=== PATIENT | male | born 1960 | race Caucasian/White ===

== ENCOUNTER 2019-12-19 14:59 | Emergency (ER) | payer MEDICARE, MEDICAID, OTHER ==
[~2019-12-19] VITALS: Ht 185.4 cm; Wt 74.8 kg
[2019-12-19 15:00] VITALS: BP 126/71
[2019-12-19] MEDS ORDERED: LORA-622 PO (15:12)
[2019-12-19] MEDS ORDERED: LEVOTHYROXINE (15:12)
[2019-12-19] MEDS ORDERED: SERT-141 PO (15:12)
[2019-12-19] MEDS ORDERED: BUSP15TA47 PO (15:12)
[2019-12-19] MEDS ORDERED: BOOSTRIX/ADACEL VACCINE (DIPHTH/PERTUSS/ACELL/TETANUS) 0.5ML SYR IM ONE (15:30)
[2019-12-19] MEDS ORDERED: CLEO150C PO (15:58)
[2019-12-19] MEDS ORDERED: RABIES VACCINE HUMAN 2.5 INTERNATIONAL UNITS/ML VIAL (90675) IM ONE (16:00)
[2019-12-19] MEDS ORDERED: RABIES IMMUNE GLOBULIN 1500 INTERNATIONAL UNIT/5ML VIAL (90375) IM ONE (16:00)
== END 2019-12-19 16:26 | disposition home or self-care (01) ==
LOC: M ED 14:59
DX: S01.85XA Open bite of other part of head, initial encounter (principal); W54.0XXA Bitten by dog, initial encounter; Z20.3 Contact with and (suspected) exposure to rabies; L03.211 Cellulitis of face; Y92.414 Local residential or business street as the place of occurrence of the external cause; Y93.9 Activity, unspecified; Y99.9 Unspecified external cause status; Z79.899 Other long term (current) drug therapy

== ENCOUNTER 2019-12-22 12:06 | Emergency (ER) | payer MEDICARE, MEDICAID, OTHER ==
[~2019-12-22] VITALS: Ht 177.8 cm; Wt 75.5 kg
[~2019-12-22 12:06] MED LIST: BUSP15TA47 PO; CLEO150C PO; LEVOTHYROXINE; LORA-622 PO; SERT-141 PO
[2019-12-22 12:07] VITALS: BP 106/59
[2019-12-22] MEDS ORDERED: RABIES VACCINE HUMAN 2.5 INTERNATIONAL UNITS/ML VIAL (90675) IM ONE (12:30)
== END 2019-12-22 12:51 | disposition home or self-care (01) ==
LOC: M ED 12:06
DX: Z23 Encounter for immunization (principal); Z20.3 Contact with and (suspected) exposure to rabies

== ENCOUNTER 2019-12-26 12:11 | Emergency (ER) | payer MEDICARE, MEDICAID, OTHER ==
[~2019-12-26] VITALS: Ht 175.3 cm; Wt 74.5 kg
[2019-12-26 12:12] VITALS: BP 111/58
[2019-12-26] MEDS ORDERED: LORA-579 PO (12:19)
[2019-12-26] MEDS ORDERED: RABIES VACCINE HUMAN 2.5 INTERNATIONAL UNITS/ML VIAL (90675) IM ONE (12:30)
== END 2019-12-26 12:45 | disposition home or self-care (01) ==
LOC: M ED 12:11
DX: Z20.3 Contact with and (suspected) exposure to rabies (principal)

== ENCOUNTER 2020-01-02 12:03 | Emergency (ER) | payer MEDICARE, MEDICAID, OTHER ==
[~2020-01-02] VITALS: Ht 182.9 cm; Wt 75.6 kg
[2020-01-02 12:03] VITALS: BP 111/64
[~2020-01-02 12:03] MED LIST changes: +LORA-579 PO
[2020-01-02] MEDS ORDERED: RABIES VACCINE HUMAN 2.5 INTERNATIONAL UNITS/ML VIAL (90675) IM ONE (12:15)
== END 2020-01-02 12:37 | disposition home or self-care (01) ==
LOC: M ED 12:03
DX: Z20.3 Contact with and (suspected) exposure to rabies (principal); Z23 Encounter for immunization; F33.9 Major depressive disorder, recurrent, unspecified; Z79.899 Other long term (current) drug therapy; Z88.0 Allergy status to penicillin; F17.210 Nicotine dependence, cigarettes, uncomplicated